=== PATIENT | female | born 1995 | race Caucasian/White ===

== ENCOUNTER 2022-06-16 11:53 | Outpatient (CLI) | payer BC, SELFPAY ==
[2022-06-16 13:15] LABS: Hematocrit 32.6 % (37.0-47.0); Hemoglobin 10.7 g/dL (12.0-15.0); Mean Corpuscular HGB Conc 32.8 g/dl (32-36); Mean Corpuscular Hemoglobin 27.8 pg (26-34); Mean Corpuscular Volume 84.7 fl (80-100); Mean Platelet Volume 9.9 fl (7.4-10.4); Platelet Count Result 342 k/mm3 (150-375); Red Blood Count 3.85 M/mm3 (4.2-5.4); Red Cell Distribution Width 13.6 % (11.5-14.5); White Blood Count 10.9 K/mm3 (4.5-10.0)
[2022-06-16 13:24] LABS: Glucose 1 Hour PP 50gm Dose 122 mg/dL
[2022-06-16 14:07] LABS: HIV 1/2 Ab P24 Ag Result Negative (Negative)
== END 2022-06-16 11:54 | disposition home or self-care (01) ==
PROVIDERS: Visit Provider Student in an Organized Health Care Education/Training Program
DX: Z34.90 Encounter for supervision of normal pregnancy, unspecified, unspecified trimester (principal); Z3A.00 Weeks of gestation of pregnancy not specified
CPT/HCPCS: 36415; 82947; 85027; 86703; G0432

== ENCOUNTER 2022-07-22 11:06 | Outpatient (RCR) | payer BC, SELFPAY ==
[2022-07-22 12:51] VITALS: BP 125/76; PULSE 89
--- NOTE | 2022-07-22 13:40 | PM.OBTRLD ---
OB - Triage/Final Diagnosis Visit Information Date of evaluation: 07/22/22 Reason for evaluation: decreased movement Comments/Additional reasons for admission: I have assessed the risk for this patient, True Ortiz, and determined that she would benefit from observation care. Evaluation Vital signs: Vital Signs - 24 hr 07/22/22 12:51 Pulse Rate 89 Blood Pressure [Right Arm] 125/76
== END 2022-09-25 15:07 | disposition home or self-care (01) ==
LOC: ANH3MEDSUR 11:06
PROVIDERS: Visit Provider Student in an Organized Health Care Education/Training Program
DX: O36.8130 Decreased fetal movements, third trimester, not applicable or unspecified (principal); Z3A.33 33 weeks gestation of pregnancy
CPT/HCPCS: 59025

== ENCOUNTER 2022-07-29 14:27 | Observation (INO) | payer BC, SELFPAY ==
[2022-07-29] VITALS (12 sets, daily range): BP systolic 121–148; BP diastolic 65–91; PULSE 93–123; RESP 8–16; TEMP 36.6–36.8; BMI 32.3
--- NOTE | ~2022-07-29 | US_ITS ---
EXAMINATION: US OB limited DATE: 07/29/2022 17:32 INDICATION: contractions. Evaluate cervix. TECHNIQUE: Real-time ultrasound of the pelvis was performed. COMPARISON: 04/13/2022, images only. FINDINGS: There is a single living fetus in breech presentation, longitudinal. The placenta is anterior. heart rate is 155 beats per minute (bpm). The amniotic fluid index is 18.5 cm. Cervical funneling. C ervical length 2.7 cm. IMPRESSION: 1. Single living fetus in breech presentation, longitudinal lie. 2. Anterior placenta. 3. Cervical funneling. Cervical length 2.7 cm Reviewed, dictated and finalized at location K. IC[employer] ASSISTANT
[2022-07-29] MEDS: NIFEdipine 10 MG CAPSULE PO ×2 (15:34→21:51)
[2022-07-29] MEDS: LACTATED RINGERS 1,000 ML 999 ML IV CONT (15:35)
[2022-07-29 15:55] LABS: Appearance Urine Slightly Cloudy (Clear); Bilirubin Urine Negative (Negative); Blood Urine Negative (Negative); Color Urine Yellow (Yellow); Glucose Urine UA Negative (Negative); Ketones Urine 1+ mg/dL (Negative); Leukocyte Esterase Ur Negative LEU/UL (Negative); Nitrate Urine Negative (Negative); Protein Urine Negative (Negative); Urobilinogen Urine 0.2 mg/dL (<2.0)
[2022-07-29] MEDS: NIFEdipine 10 MG CAPSULE 20 MG PO (16:00)
[2022-07-29 16:03] LABS: Mucus Urine Rare /lpf; Squamous Epithelial Cell Urine Many /hpf (Few); WBC Urine 0-3 /hpf
[2022-07-29 16:04] LABS: Add Urine Microscopic? YES
[2022-07-29 16:06] LABS: Non Pathogenic Casts Not Present
--- NOTE | 2022-07-29 16:17 | OBADM ---
This patient, True Ortiz, admitted to the OB room OB Post 113 for observation. Patient/family oriented to hospital policies and general routines including ID bracelet, bed and alarms, visiting hours, pain management, procedures, bathroom and other care routines, personal items, smoking policy, room service/diet, and visiting hours. Patient/Family are encouraged to report perceived risks to care and to ask questions if they do not understand what they are told or what they should do.
[2022-07-29] MEDS: BETAMETHASONE SOD PHOS/ACETATE 30 MG/5 ML VIAL 12 MG IM (16:51)
--- NOTE | 2022-07-29 18:58 | PM.IMHP ---
H&P: HPI History of Present Illness Date/Time: 07/29/22 18:58 Chief Complaint: labor Narrative: 27 yo at 34w5d who presents with labor. Pt started having contractions early this morning. She states they persisted and became stronger. Pt was in a lot of pain upon arrival. Pt had not eaten or drank much fluid today. She reports good movement. She denies any LOF or vaginal bleeding. is complicated by short interval and history of preeclampsia in her G1. Review of Systems Cardiovascular: Cardiovascular: Denies chest pain, Denies leg edema, Denies palpitations, Denies dyspnea and Denies dyspnea on exertion Respiratory: Respiratory: Denies cough, Denies dyspnea and Denies dyspnea on exertion Gastrointestinal: Gastrointestinal: Denies abdominal pain, Denies constipation, Denies diarrhea, Denies nausea and Denies vomiting Genitourinary: Genitourinary: Denies hematuria, Denies urinary frequency, Denies dysuria, Denies pelvic pain, Denies urinary incontinence and Denies vaginal discharge Neurologic: Reports system reviewed and no additional complaints, except as documented Psychiatric: Psychiatric: Reports no additional psychiatric complaints Endocrine: Endocrine: Denies palpitations PMFSH Past Medical History Medical History Gestational hypertension 1 st pregnany Surgical History Surgical History History of gynecological procedure (~11/09/18) Lscope excision of endometriosis History of gynecological procedure (~05/11/19) removal of scar tissue Adhesions Hx of cholecystectomy (~2014) Family History Family History Grandparent Diabetes mellitus maternal grandmother Acute myocardial infarction maternal grandfather Breast cancer maternal grandmother Mother Hypertension Social History Social History Smoking status: Never smoker Alcohol intake: never Substance use: never Substance use type: does not use Living arrangements: other Additional living arrangements comments: Occupation/Education: unemployed Gender identity (if verbalized by the patient): Female Sexual Orientation (if Verbalized by the Patient): Straight or Heterosexual Meds Home Medications and Allergies Home Medications Medication Instructions Recorded Confirmed Type vitamins-iron fumarate 65 1 tablet PO DAILY 03/18/22 06/30/22 History mg iron-folic acid 1 mg tablet ferrous sulfate 325 mg (65 mg 325 mg PO DAILY 06/30/22 06/30/22 History iron) tablet Allergies Allergy/AdvReac Type Severity Reaction Status Date / Time No Known Allergies Allergy Verified 07/28/22 10:41 Vital Signs Vital Signs - 24 hr 07/29/22 14:51 07/29/22 15:00 07/29/22 15:34 Pulse Rate 113 H 101 H 93 Blood Pressure 137/86 138/82 134/82 07/29/22 15:46 07/29/22 16:01 07/29/22 16:16 Pulse Rate 95 93 112 H Blood Pressure 139/91 H 141/81 H 146/91 H 07/29/22 16:30 07/29/22 16:45 07/29/22 17:00 Pulse Rate 105 H 100 110 H Blood Pressure 140/85 148/82 H 143/83 H 07/29/22 17:25 07/29/22 18:55 Pulse Rate 107 H 107 H Blood Pressure 139/84 147/85 H Exam Const: General: no acute distress Eyes: EOM: EOMs intact bilaterally Neck: Neck: supple Thyroid: thyroid normal Chest: Breast/axilla inspection: normal inspection of the breasts Breast/axilla palpation: normal palpation of the breasts, normal palpation of the axillae and no axillary lymphadenopathy Resp: Effort & Inspection: normal respiratory effort Auscultation: clear to auscultation bilaterally Cardio: Rate: regular rate Rhythm: regular rhythm GI: Inspection: non-distended and other (Gravid) GI Palp: Yes Soft to palpation, No Tenderness to palpation prese
[2022-07-29 21:31] LABS: Basophils Percent Auto 0.1 % (0.2-1.2); Hematocrit 30.9 % (37.0-47.0); Immature Granulocyte Percent A 0.8 % (0-0.5); Lymphocytes Absolute Auto 0.78 K/mm3 (0.9-3.2); Lymphocytes Percent Auto 6.1 % (18.3-44.2); Mean Corpuscular HGB Conc 32.4 g/dl (32-36); Mean Corpuscular Hemoglobin 27.2 pg (26-34); Monocytes Absolute Auto 0.3 K/mm3 (0.1-0.6); Monocytes Percent Auto 2.2 % (2.6-8.5); Neutrophils Absolute Auto 11.6 K/mm3 (1.3-6.7); Neutrophils Percent Auto 90.8 % (45.5-73.1); Platelet Count Result 316 k/mm3 (150-375); Red Blood Count 3.68 M/mm3 (4.2-5.4); Red Cell Distribution Width 14.7 % (11.5-14.5); White Blood Count 12.7 K/mm3 (4.5-10.0)
[2022-07-29 21:51] LABS: Alanine Aminotransferase 13 U/L (6-35); Albumin Level 3.5 g/dL (3.5-5.1); Alkaline Phosphatase 148 U/L (38-126); Anion Gap 8 mmol/L (8-16); Aspartate Amino Transferase 21 U/L (14-36); Bilirubin,Total 0.7 mg/dL (0.2-1.3); Blood Urea Nitrogen 5 mg/dL (7-17); Calcium 8.2 mg/dL (8.4-10.2); Carbon Dioxide 18 mmol/L (22-30); Chloride 107 mmol/L (98-107); Estimated CRCL calculation 148 ml/min; Estimated Glomerular Filt Rate > 60; Glucose 108 mg/dL (65-110); Potassium 3.8 mmol/L (3.4-5.0); Sodium 133 mmol/L (137-145); Uric Acid 3.7 mg/dL (2.5-7.5)
[2022-07-29 23:04] LABS: Creatinine Urine 29.7 mg/dL; Total Protein Urine Random 10 mg/dL; Ur Ttl Prot Creatinine Ratio 0.34 mg/mg (0-0.20)
[2022-07-30] VITALS (14 sets, daily range): BP systolic 107–130; BP diastolic 55–73; PULSE 92–128; RESP 16; TEMP 36.2–36.6; O2SAT 94–99
[2022-07-30] MEDS: NIFEdipine 10 MG CAPSULE PO ×2 (04:04→10:01)
--- NOTE | 2022-07-30 11:54 | PM.DS ---
DS: Admitting Diagnosis Discharge Date 07/30/22 Admitting Diagnosis labor DS: Discharge Diagnosis Discharge Diagnosis (1) labor in third trimester: Code(s): O60.03 - labor without delivery, third trimester Status: Acute DS: Summary Hospital Course Hospital Course: 27-year-old at 34w5d who presented with contractions. Patient was having painful contractions all day yesterday. Patient was found to have regular contractions on tocometer. Cervix had advanced to 1.5 cm. Patient received Procardia for tocolysis. Patient was also given betamethasone for lung maturity. Ultrasound showed a cervical length of 2.7 cm. Patient remained stable on Procardia overnight. Patient is much more comfortable today. She reports scant painful contractions. She reports good movement. Status at Discharge Functional status at discharge: independent ambulation Overall status at discharge: patient is back to baseline Time Spent with Patient Time attestation: Total time spent providing and/or coordinating discharge services: Time spent: Less than 30 minutes Exam Const: General: cooperative, healthy appearing, comfortable and no acute distress Cardio: Rate: regular rate GI: Inspection: normal to inspection and other ( Gravid uterus) GI Palp: No abdominal tenderness and Yes Soft to palpation Psych: Appearance: grossly normal Mental Status: mental status grossly normal DS: Data Data Completed and Pending Labs on day of discharge: Labs from last 24 hours 07/29/22 07/29/22 07/29/22 21:15 21:15 21:15 WBC 12.7 H RBC 3.68 L Hgb 10.0 L Hct 30.9 L MCV 84.0 MCH 27.2 MCHC 32.4 RDW 14.7 H Plt Count 316 MPV 10.0 Immature Gran % (Auto) 0.8 H Neut % (Auto) 90.8 H Lymph % (Auto) 6.1 L [place] % (Auto) 2.2 L Eos % (Auto) 0.0 Baso % (Auto) 0.1 L Lymph # (Auto) 0.78 L [place] # (Auto) 0.3 Eos # (Auto) 0.0 Baso # (Auto) 0.0 Abs Immat Gran (auto) 0.10 H Absolute Neuts (auto) 11.6 H Absolute Nucleated RBC 0.0 Nucleated RBC % 0.0 Sodium 133 L Potassium 3.8 Chloride 107 Carbon Dioxide 18 L Anion Gap 8 BUN 5 L Creatinine 0.50 L Estim Creat Clear Calc 148 Estimated GFR > 60 Glucose 108 Uric Acid 3.7 Calcium 8.2 L Total Bilirubin 0.7 AST 21 ALT 13 Alkaline Phosphatase 148 H Total Protein 7.0 Albumin 3.5 Urine Color Urine Appearance Urine pH Ur Specific [place] Urine Protein Urine Glucose (UA) Urine Ketones Ur Blood (Man) Urine Nitrate Urine Bilirubin Urine Urobilinogen Leukocyte Esterase Rfl Urine RBC Urine WBC Ur Squamous Epith Cells Urine Casts Urine Mucus U Random Total Protein Urine Creatinine Protein/Creat Ratio 2 Blood Type A Positive Antibody Screen Negative 07/29/22 07/29/22 21:15 15:32 WBC RBC Hgb Hct MCV MCH MCHC RDW Plt Count MPV Immature Gran % (Auto) Neut % (Auto) Lymph % (Auto) [place] % (Auto) Eos % (Auto) Baso % (Auto) Lymph # (Auto) [place] # (Auto) Eos # (Auto) Baso # (Auto) Abs Immat Gran (auto) Absolute Neuts (auto) Absolute Nucleated RBC Nucleated RBC % Sodium Potassium Chloride Carbon Dioxide Anion Gap BUN Creatinine Estim Creat Clear Calc Estimated GFR Glucose Uric Acid Calcium Total Bilirubin AST ALT Alkaline Phosphatase Total Protein Albumin Urine Color Yellow Urine Appearance Slightly cloudy Urine pH 7.0 Ur Specific [place] 1.020 Urine Protein Negative Urine Glucose (UA) Negative Urine Ketones 1+ H Ur Blood (Man) Negative Urine Nitrate Negative Urine Bilirubin Negative Urine Urobilinogen 0.2 Leukocyte Esterase Rfl Negative Urine RBC 3-5 H Urine WBC 0-3 Ur Squamous Epith Cells Many H Urine Casts Not pre
[2022-07-30] MEDS: BETAMETHASONE SOD PHOS/ACETATE 30 MG/5 ML VIAL 12 MG IM (14:11)
== END 2022-07-30 14:26 | disposition home or self-care (01) ==
PROVIDERS: Admitting Provider Student in an Organized Health Care Education/Training Program; Visit Provider Student in an Organized Health Care Education/Training Program
DX: O60.03 Preterm labor without delivery, third trimester (principal); O09.93 Supervision of high risk pregnancy, unspecified, third trimester; O26.893 Other specified pregnancy related conditions, third trimester; O09.299 Supervision of pregnancy with other poor reproductive or obstetric history, unspecified trimester; Z3A.34 34 weeks gestation of pregnancy
CPT/HCPCS: 36415; 76815; 80053; 82570; 84156; 84550; 85025; 86850; 86900; 86901; 96360; 96361; 96372; A9270; G0378; G0379; J0702; J7120

== ENCOUNTER 2022-08-02 13:04 | Observation (INO) | payer BC, SELFPAY ==
[2022-08-02 13:17] VITALS: BP 135/88; PULSE 115
[2022-08-02 13:23] VITALS: BMI 32.5
--- NOTE | 2022-08-02 13:23 | OBADM ---
This patient, True Ortiz, admitted to the OB room OB Post 116 for observation. Patient/family oriented to hospital policies and general routines including ID bracelet, bed and alarms, visiting hours, pain management, procedures, bathroom and other care routines, personal items, smoking policy, room service/diet, and visiting hours. Patient/Family are encouraged to report perceived risks to care and to ask questions if they do not understand what they are told or what they should do.
[2022-08-02 13:30] VITALS: BP 135/90; PULSE 105
[2022-08-02 13:45] VITALS: BP 139/80; PULSE 84
[2022-08-02 14:00] VITALS: BP 127/86; PULSE 86; TEMP 36.6
[2022-08-02] MEDS: NIFEdipine 10 MG CAPSULE PO (15:38)
[2022-08-02 16:37] VITALS: BP 124/65; PULSE 98
--- NOTE | 2022-08-05 11:06 | PM.OBTRLD ---
OB - Triage/Final Diagnosis Visit Information Comments/Additional reasons for admission: I have assessed the risk for this patient, True Ortiz, and determined that she would benefit from observation care. Final Diagnosis (1) Threatened labor: Code(s): O47.00 - False labor before 37 completed weeks of gestation, unspecified trimester Status: Acute
== END 2022-08-02 17:01 | disposition home or self-care (01) ==
PROVIDERS: Admitting Provider Obstetrics & Gynecology; Visit Provider Obstetrics & Gynecology
DX: O47.03 False labor before 37 completed weeks of gestation, third trimester (principal); Z3A.35 35 weeks gestation of pregnancy
CPT/HCPCS: A9270; G0378; G0379

== ENCOUNTER 2022-08-11 20:53 | Observation (INO) | payer BC, SELFPAY ==
[2022-08-11] VITALS (8 sets, daily range): BP systolic 127–153; BP diastolic 79–91; PULSE 79–120; RESP 16; TEMP 36.6; BMI 32.5
[2022-08-11] MEDS: LACTATED RINGERS 1,000 ML 999 ML IV CONT (22:00)
--- NOTE | 2022-08-11 22:11 | OBADM ---
This patient, True Ortiz, admitted to the OB room Labor/Delivery/Recovery 106 for observation. Patient/family oriented to hospital policies and general routines including ID bracelet, bed and alarms, visiting hours, pain management, procedures, bathroom and other care routines, personal items, smoking policy, room service/diet, and visiting hours. Patient/Family are encouraged to report perceived risks to care and to ask questions if they do not understand what they are told or what they should do.
[2022-08-12] VITALS: BP 139/80; PULSE 92
--- NOTE | 2022-08-15 11:17 | PM.OBTRLD ---
OB - Triage/Final Diagnosis Visit Information Reason for evaluation: threatened labor Comments/Additional reasons for admission: I have assessed the risk for this patient, True Ortiz, and determined that she would benefit from observation care.
== END 2022-08-12 00:39 | disposition home or self-care (01) ==
PROVIDERS: Admitting Provider Obstetrics & Gynecology; Visit Provider Obstetrics & Gynecology
DX: O47.03 False labor before 37 completed weeks of gestation, third trimester (principal); Z3A.36 36 weeks gestation of pregnancy
CPT/HCPCS: 96360; G0378; G0379; J7120

== ENCOUNTER 2022-08-23 12:40 | Outpatient (CLI) | payer BC, SELFPAY ==
[2022-08-23 13:02] VITALS: BP 125/74; PULSE 122
[2022-08-23 13:33] VITALS: BP 125/74; PULSE 105
== END 2022-08-23 13:40 | disposition home or self-care (01) ==
LOC: ANHOBOP 13:23 → ANHLDR 13:24
PROVIDERS: Visit Provider Student in an Organized Health Care Education/Training Program
DX: O42.90 Premature rupture of membranes, unspecified as to length of time between rupture and onset of labor, unspecified weeks of gestation (principal); Z3A.00 Weeks of gestation of pregnancy not specified
CPT/HCPCS: 59025; 84112; 99199

== ENCOUNTER 2022-08-31 06:07 | Inpatient (IN) | payer BC, SELFPAY ==
[2022-08-31] VITALS (109 sets, daily range): BP systolic 98–173; BP diastolic 39–147; PULSE 46–149; RESP 18; TEMP 36.9–37.2; O2SAT 74–100; BMI 32.5
[2022-08-31 06:39] LABS: Basophils Percent Auto 0.2 % (0.2-1.2); Eosinophils Absolute Auto 0.1 K/mm3 (0-0.3); Eosinophils Percent Auto 0.6 % (0-4.4); Hematocrit 32.6 % (37.0-47.0); Hemoglobin 10.4 g/dL (12.0-15.0); Immature Granulocyte Absolute 0.08 K/mm3 (0.00-0.031); Immature Granulocyte Percent A 0.9 % (0-0.5); Lymphocytes Absolute Auto 1.97 K/mm3 (0.9-3.2); Lymphocytes Percent Auto 22.5 % (18.3-44.2); Mean Corpuscular HGB Conc 31.9 g/dl (32-36); Mean Corpuscular Hemoglobin 26.3 pg (26-34); Mean Corpuscular Volume 82.3 fl (80-100); Mean Platelet Volume 10.3 fl (7.4-10.4); Monocytes Absolute Auto 0.7 K/mm3 (0.1-0.6); Monocytes Percent Auto 8.4 % (2.6-8.5); Neutrophils Absolute Auto 5.9 K/mm3 (1.3-6.7); Neutrophils Percent Auto 67.4 % (45.5-73.1); Platelet Count Result 311 k/mm3 (150-375); Red Blood Count 3.96 M/mm3 (4.2-5.4); Red Cell Distribution Width 15.5 % (11.5-14.5); White Blood Count 8.8 K/mm3 (4.5-10.0)
--- NOTE | 2022-08-31 06:40 | LDADM ---
This patient, True Ortiz, was admitted to Labor/Delivery/Recovery 104 on 08/31/22 at 06:07. Plans for labor, pain management and were discussed with patient. Patient/family oriented to hospital policies and general routines including ID bracelet, bed and alarms, visiting hours, pain management, procedures, bathroom and other care routines, personal items, smoking policy, room service/diet and guest tray routines, security routines, and visiting hours. Patient/Family are encouraged to report perceived risks to care and to ask questions if they do not understand what they are told or what they should do. See OBIX for further documentation.
[2022-08-31] MEDS: OXYTOCIN 30 UNITS/NS 500 ML 30 UNITS/500 ML BAG IV CONT (06:56)
[2022-08-31] MEDS: LACTATED RINGERS 1,000 ML 125 ML IV CONT ×2 (06:56→12:01)
--- NOTE | 2022-08-31 07:21 | WPDANESEPP ---
Anes - Eval Pre Procedure Procedure: labor epidural Date/Time: 08/31/22 07:21 Preop Diagnosis: labor pain Pre Op Diagnosis: Induction of Labor Patient Data Age: 27 Gender: F Height: 1.63 m Weight: 86 kg Last Vital Signs Pulse 77 08/31/22 07:16 BP 126/79 08/31/22 07:16 O2 Del Method Room Air 08/31/22 06:38 Allergies Allergy/AdvReac Type Severity Reaction Status Date / Time No Known Allergies Allergy Verified 08/25/22 10:43 Home Medications Medication Instructions Recorded Confirmed Type vit no.95-ferrous 1 tablet PO DAILY 08/31/22 08/31/22 History fumarate 28 mg-folic acid 800 mcg tablet () Laboratory Tests 08/31/22 08/31/22 06:33 06:33 WBC 8.8 K/mm3 K/mm3 (4.5-10.0) RBC 3.96 M/mm3 L M/mm3 (4.2-5.4) Hgb 10.4 g/dL L g/dL (12.0-15.0) Hct 32.6 % L % (37.0-47.0) MCV 82.3 fl fl (80-100) MCH 26.3 pg pg (26-34) MCHC 31.9 g/dl L g/dl (32-36) RDW 15.5 % H % (11.5-14.5) Plt Count 311 k/mm3 k/mm3 (150-375) MPV 10.3 fl fl (7.4-10.4) Immature Gran % (Auto) 0.9 % H % (0-0.5) Neut % (Auto) 67.4 % % (45.5-73.1) Lymph % (Auto) 22.5 % % (18.3-44.2) [place] % (Auto) 8.4 % % (2.6-8.5) Eos % (Auto) 0.6 % % (0-4.4) Baso % (Auto) 0.2 % % (0.2-1.2) Lymph # (Auto) 1.97 K/mm3 K/mm3 (0.9-3.2) [place] # (Auto) 0.7 K/mm3 H K/mm3 (0.1-0.6) Eos # (Auto) 0.1 K/mm3 K/mm3 (0-0.3) Baso # (Auto) 0.0 K/mm3 K/mm3 (0.0-0.1) Abs Immat Gran (auto) 0.08 K/mm3 H K/mm3 (0.00-0.031) Absolute Neuts (auto) 5.9 K/mm3 K/mm3 (1.3-6.7) Absolute Nucleated RBC 0.0 K/mm3 K/mm3 (0.0-0.012) Nucleated RBC % 0.0 % % (0.0-0.2) RPR Pending Patient hx anesthesia problems: none Family hx anesthesia problems: none Results Review: All pre-operative results and documents have been reviewed as part of the pre-operative evaluation. [facility] Past Medical History Medical History Gestational hypertension 1 st [facility] Surgical History Surgical History History of gynecological procedure (~11/09/18) Lscope excision of endometriosis History of gynecological procedure (~05/11/19) removal of scar tissue Adhesions Hx of cholecystectomy (~2014) Family History Family History Grandparent Diabetes mellitus maternal grandmother Acute myocardial infarction maternal grandfather Breast cancer maternal grandmother Mother Hypertension Father Plasmacytoma Social History Social History Smoking status: Never smoker Alcohol intake: never Substance use: never Substance use type: does not use Lack of Transportation: No Lack of Food: Never True Current Housing: I Have Housing Concerned About Future Housing: No Difficulty Paying Gas/Electric Bills: No Difficulty Paying for Meds: No Currently Unemployed: No Education: Bachelor's Degree Difficulty w/ Childcare or Family Care: No Living arrangements: other Additional living arrangements comments: Occupation/Education: unemployed Gender identity (if verbalized by the patient): Female Sexual Orientation (if Verbalized by the Patient): Straight or Heterosexual Spiritual care concerns: No Exam Day of Procedure 08/31/22 07:21 Patient weight: normal Heart: regular rate and rhythm Lungs: clear to auscultation and normal air movement Airway: Mallampati scale Neurological: alert and oriented
--- NOTE | 2022-08-31 09:30 | WPDHPUPDATE1 ---
History and Physical Update Update Date/Time: 08/31/22 09:30 27 yo at 39w1d who presents for elective IOL. her has been uncomplicated thus far. She reports good movement. She denies any regular contractions. History and Physical has been reviewed, including an updated exam of the patient. There are NO changes in the patient's condition. Risks, benefits, and alternatives have been discussed and questions answered. Patient agrees to proceed with procedure. A/P: Admit to L&D Routine admission orders Rh positive GBS negative Plan for Pitocin induction Continuous external monitoring Patient may have epidural as needed
[2022-08-31] MEDS: fentaNYL CITRATE INJ (*CRX) 100 MCG/2 ML VIAL 50 MCG IV PUSH ×2 (11:20→15:33)
[2022-08-31 13:48] LABS: Rapid Plasma Reagin Non-Reactive (NonReactive)
--- NOTE | 2022-08-31 15:22 | P.PCNOB_ITS ---
OB - Delivery Note Procedure Procedure: Patient pushed for a spontaneous vaginal delivery. The fetus was delivered atraumatically and placed on the maternal abdomen. The cord was clamped and cut after 1 minute of life. The cord was double clamped and cut and a segment of cord was collected for cord gases. Cord blood was collected for blood type and Coomb's testing. The placenta delivered spontaneously and was noted to be intact. The perineum was inspected and there was a 1st degree perineal laceration. The laceration was repaired with 3-0 vicryl in the usual fashion. The uterus was firm and good hemostasis was noted. The patient and fetus were stable in the delivery room. Induction method: Per Pitocin Protocol Delivery augmentation: Rupture of Membranes Delivery monitor: External FHT Route of delivery: Episiotomy description: None Laceration Description: Perineal - 1st Degree Delivery repair: vicryl Specimen: No Quantitative Blood Loss (ml): 300 Anesthesia type: Epidural Disposition: Floor () Complications: No immediate complications [place] Baby Date of : 08/31/22 Time of : 14:55 Weeks of gestation at delivery: 39 gender: Female presentation: vertex position: Right Occiput Anterior Placenta delivery description: Spontaneous Cord Vessel Description: 3 Vessels score one minute: 9 score five minutes: 9 AMG Delivery Billing Delivery Delivery: Delivery Charge
[2022-08-31] MEDS: OXYTOCIN 30 UNITS/NS 500 ML 30 UNITS/500 ML BAG 125 UNITS IV CONT (15:31)
--- NOTE | 2022-08-31 17:43 | PC.NURSE ---
Patient transferred to post room #285 via ( W/C ). Support person present. Oriented to unit, room, information board, rooming in, admission packet and security measures. Patient verbalizes understanding.
[2022-08-31] MEDS: POLYSACCHARIDE IRON COMPLEX 150 MG CAPSULE PO (19:35)
[2022-09-01 04:52] LABS: Hematocrit 27.8 % (37.0-47.0); Hemoglobin 8.9 g/dL (12.0-15.0)
[2022-09-01 07:50] VITALS: BP 129/83; PULSE 84; RESP 16; TEMP 36.7; O2SAT 96
[2022-09-01] MEDS: POLYSACCHARIDE IRON COMPLEX 150 MG CAPSULE PO (08:01)
[2022-09-01] MEDS: DOCUSATE SODIUM 100 MG CAPSULE PO (08:02)
[2022-09-01] MEDS: MULTIVIT/MIN/PREN/FOL AC/IRON TABLET 1 TAB PO (08:02)
--- NOTE | 2022-09-01 09:46 | WPDANLDPN2 ---
Anes-Prog Note L&D Date/Time: 09/01/22 09:46 Comfortable throughout: labor and delivery Neuraxial method: epidural Epidural/Spinal procedure site: tender Neuro status: Neuro function grossly intact. Cardiovascular status: normal Respiratory status: normal Airway patency: baseline Mental status: baseline Post-Op hydration status: normal Vital Signs: Last Vital Signs Temp 98.1 F 09/01/22 07:50 Pulse 84 09/01/22 07:50 Resp 16 09/01/22 07:50 BP 129/83 09/01/22 07:50 Pulse Ox 96 09/01/22 07:50 O2 Del Method Room Air 09/01/22 07:00 Pain score (VAS): 0 I/O: Intake & Output 08/31/22 09/01/22 09/01/22 23:59 07:59 15:59 Output Total 650 Balance -650 Post-procedural complaints: none Patient feedback: Patient satisfied with anesthetic care.states first epidural did not provide relief, verbalized good coverage once epidural replaced.
--- NOTE | 2022-09-01 10:11 | PM.OBDSVD ---
DS: Admitting Diagnosis Discharge Date 09/01/22 Admitting Diagnosis Intrauterine at term DS: Discharge Diagnosis Discharge Diagnosis (1) Supervision of high risk , unspecified, third trimester: Code(s): O09.93 - Supervision of high risk , unspecified, third trimester Status: Acute OB - DS: Summary OB Procedures : None OB Procedures Intrapartum: Spontaneous Vag Delivery OB Procedures: : None Status at Discharge Functional status at discharge: independent ambulation Overall status at discharge: patient is back to baseline Time Spent with Patient Time attestation: Total time spent providing and/or coordinating discharge services: Time spent: Less than 30 minutes Exam Const: General: comfortable and no acute distress Resp: Effort & Inspection: normal respiratory effort Auscultation: clear to auscultation bilaterally Cardio: Rate: regular rate GI: GI Palp: Yes Soft to palpation Auscultation: normal bowel sounds Other: Fundus firm below umbilicus Psych: Appearance: grossly normal Mental Status: mental status grossly normal Affect: normal affect DS: Data Data Completed and Pending Labs on day of discharge: Labs from last 24 hours 09/01/22 08/31/22 04:13 06:33 Hgb 8.9 L Hct 27.8 L RPR Non-reactive Discharge Plan Discharge Discharging Clinician: Aditya Hughes Patient Disposition: Home, Self-Care Activity: as tolerated and pelvic rest Diet: regular Patient Instructions: Antibiotic Form, Vaginal Delivery (DC) Stand Alone Forms: General Discharge Information Follow-up/Referrals: Aditya Hughes MD [Physician] - Discharge Medications: New polysaccharide iron complex 150 mg iron Capsule 150 mg PO BIDWM Qty: 60 0RF acetaminophen [Mapap (acetaminophen)] 325 mg Tablet 650 mg PO Q6H PRN (Reason: Mild Pain (1-3) Or Headache) Qty: 30 0RF ibuprofen 600 mg Tablet 600 mg PO Q6H PRN (Reason: Cramping) Qty: 30 0RF Continued PNV cmb#95-ferrous fumarate-FA [] 28 mg iron- 800 mcg Tablet 1 tablet PO DAILY Date of admission: 08/31/22 06:07 Primary Care Provider: UNKNOWN,DOCTOR Admitting Provider: Aditya Hughes Attending physician on admission: Aditya Hughes Condition: Stable
[2022-09-02 13:43] VITALS: BP 140/85; PULSE 72; RESP 16; TEMP 36.8; O2SAT 97
== END 2022-09-01 16:42 | disposition home or self-care (01) | DRG 807 ==
LOC: ANHLDR 06:15 → ANHOB2 17:45
PROVIDERS: Admitting Provider Student in an Organized Health Care Education/Training Program; Visit Provider Student in an Organized Health Care Education/Training Program
DX: O70.1 Second degree perineal laceration during delivery (principal); Z37.0 Single live birth; Z90.49 Acquired absence of other specified parts of digestive tract; Z3A.39 39 weeks gestation of pregnancy
CPT/HCPCS: 36415; 85014; 85018; 85025; 86592; 86850; 86900; 86901; A9270; J2590; J2795; J3010; J7120

== ENCOUNTER 2022-12-04 12:37 | Emergency (ER) | payer BC, SELFPAY ==
--- NOTE | ~2022-12-04 | XR_ITS ---
EXAMINATION: XR shoulder RT min 2V INDICATION: Right shoulder pain TECHNIQUE: Four views of the right shoulder are submitted. COMPARISON: None FINDINGS: Normal alignment. No fracture. Glenohumeral and acromioclavicular joint spaces are normal. Soft tissues are unremarkable. IMPRESSION: 1. No acute osseous abnormality. Reviewed, dictated and finalized at location B.
[2022-12-04 12:47] VITALS: BP 157/89; PULSE 74; RESP 17; TEMP 36.3; O2SAT 100
--- NOTE | 2022-12-04 13:00 | ED.EXTPRO ---
HPI - Extremity Problem General Chief complaint: Extremity Problem,Nontraumatic Stated complaint: R shoulder pain Time Seen by Provider: 12/04/22 12:51 History of Present Illness HPI Narrative: Patient is a 27-year-old female presenting with right shoulder pain. Patient states that for the last several days she has had severe right shoulder pain that seems to be worse at night. States that it gets a little bit better during the day. States that she has been using ibuprofen with moderate relief. She denies recent injuries. No neck or back pain. She denies numbness or weakness. States that moving the arm laterally worsens the pain. Denies further complaints. Related Data Home Medications Medication Instructions Recorded Confirmed vit no.95-ferrous 1 tablet PO DAILY 08/31/22 08/31/22 fumarate 28 mg-folic acid 800 mcg tablet () Allergies Allergy/AdvReac Type Severity Reaction Status Date / Time No Known Allergies Allergy Verified 12/04/22 12:57 Review of Systems Review of Systems: All systems reviewed & are unremarkable except as noted in HPI and below PMFSH Past Medical History Medical History Gestational hypertension 1 st [facility] Surgical History Surgical History History of gynecological procedure (~11/09/18) Lscope excision of endometriosis History of gynecological procedure (~05/11/19) removal of scar tissue Adhesions Hx of cholecystectomy (~2014) Family History Family History Grandparent Diabetes mellitus maternal grandmother Acute myocardial infarction maternal grandfather Breast cancer maternal grandmother Mother Hypertension Father Plasmacytoma Social History Social History Smoking status: Never smoker Alcohol intake: never Substance use: never Substance use type: does not use Lack of Transportation: No Lack of Food: Never True Current Housing: I Have Housing Concerned About Future Housing: No Difficulty Paying Gas/Electric Bills: No Difficulty Paying for Meds: No Currently Unemployed: No Education: Bachelor's Degree Difficulty w/ Childcare or Family Care: No Living arrangements: other Additional living arrangements comments: Occupation/Education: unemployed Gender identity (if verbalized by the patient): Female Sexual Orientation (if Verbalized by the Patient): Straight or Heterosexual Spiritual care concerns: No Exam Narrative: GENERAL: Well-appearing, well-nourished, and in no acute distress. HEAD: Normocephalic, atraumatic. EYES: PERRLA and EOMI. ENT: Nares clear, no rhinorrhea or epistaxis. Mucous membranes moist. NECK: Supple. CHEST: No respiratory distress. HEART: Regular rate and rhythm. Normal peripheral pulses. ABDOMEN: Soft, nontender, nondistended, normal active bowel sounds. EXTREMITIES: Normal range of motion. No edema. tender along anterior aspect of right glenohumeral joint; ROM intact though elicits pain in the R shoulder, pulses 2+, no sensory deficits, no overlying skin changes SKIN: Warm, dry, no rash. NEURO: No focal deficits. Alert and oriented x3. PSYCH: Normal mood and affect. Course Vital Signs Vital signs: Vital Signs Temperature 97.4 F L 12/04/22 12:47 Pulse Rate 74 12/04/22 12:47 Respiratory Rate 17 12/04/22 12:47 Blood Pressure 157/89 H 12/04/22 12:47 Pulse Oximetry 100 12/04/22 12:47 Oxygen Delivery Room Air 12/04/22 12:47 Temperature 97.4 F L 12/04/22 12:47 Pulse Rate 74 12/04/22 12:47 Respiratory Rate 17 12/04/22 12:47 Blood Pressure 157/89 H 12/04/22 12:47 Pulse Oximetry 100 12/04/22 12:47 Oxygen Delivery Room Air 12/04/22 12:47 MDM - Extremity (Nontraumatic) MDM [place]
== END 2022-12-04 14:14 | disposition home or self-care (01) ==
PROVIDERS: Emergency Provider Emergency Medicine
DX: M25.511 Pain in right shoulder (principal)
CPT/HCPCS: 73030; 99283